=== PATIENT | female | born 1950 | race Caucasian/White ===

== ENCOUNTER → 2017-05-20 10:17 | Outpatient (CLI) | payer MEDICARE, BC | END | disposition home or self-care (01) | LOC: D.US 10:17 | DX: R31.9 Hematuria, unspecified (principal); N28.1 Cyst of kidney, acquired ==

== ENCOUNTER → 2017-05-27 11:05 | Outpatient (CLI) | payer MEDICARE, BC | END | disposition home or self-care (01) | LOC: D.CT 11:05 | DX: R31.9 Hematuria, unspecified (principal); N28.1 Cyst of kidney, acquired ==

== ENCOUNTER 2018-08-18 06:04 | Outpatient (CLI) | payer MEDICARE, BC ==
[~2018-08-18] VITALS: Ht 154.9 cm; Wt 84.1 kg
[2018-08-18 06:28] LABS: EOSINOPHILS 3.5 % (0-7); HEMOGLOBIN 14.9 g/dL (12-16); IMMATURE GRANULOCYTES 0.1 % (0-5); LYMPHOCYTES 29.8 % (15-50); MCH 32.3 pg (26.0-34.0); MCHC 34.7 g/dL (31.0-37.0); MCV 93.1 fL (80.0-100.0); MEAN PLATELET VOLUME 10.4 fL (7.4-10.4); MONOCYTES 6.8 % (2-11); NEUTROPHILS 58.8 % (40-80); RBC 4.62 10x6/uL (4.00-5.40); RDW 13.1 % (11.5-14.5); WBC 7.4 10x3/uL (4.8-10.8)
[2018-08-18 06:45] LABS: APTT 25.3 SECONDS (22.8-39.4); INR 1.06 (0.85-1.17); PROTIME 13.3 SECONDS (11.6-15.0)
[2018-08-18 06:47] LABS: ANION GAP 14.2 mmol/L (8-16); CALCIUM 9.1 mg/dL (8.5-10.1); CARBON DIOXIDE 28.2 mmol/L (21.0-32.0); CREATININE - SERUM 0.9 mg/dL (0.6-1.3); POTASSIUM - SERUM 3.4 mmol/L (3.5-5.1)
[2018-08-18] MEDS ORDERED: COUMADIN2.5 MG PO (06:58)
[2018-08-18] MEDS ORDERED: ACETAMINOPHEN325 MG PO (06:58)
[2018-08-18] MEDS ORDERED: VESICARE5 MG PO (06:59)
[2018-08-18] MEDS ORDERED: ZOCOR40 MG PO (06:59)
[2018-08-18] MEDS ORDERED: SYNTHROID50 MCG PO (06:59)
[2018-08-18] MEDS ORDERED: HYDROCHLOROTHIA25 MG PO (06:59)
[2018-08-18] MEDS ORDERED: POTASSIUM CHLO10 ME1 PO (07:00)
[2018-08-18 07:08] VITALS: BP 142/71; Ht 154.9 cm; Wt 84.1 kg
[2018-08-18 07:38] LABS: PLATELET COUNT 178 10x3/uL (130-400)
--- NOTE | 2018-08-18 10:55 | NUR ---
DC INSTRUCTIONS GIVEN TO PT/FAMILY. STATE UNDERSTANDING. DC'D IV CATH FULLY INTACT
--- NOTE | 2018-08-18 11:03 | NUR ---
PT LEFT UNIT VIA WC AT 1103
== END 2018-08-18 11:03 | disposition home or self-care (01) ==
LOC: D.SP 06:04 → D.CT 08:00 → D.SP 08:00
PROVIDERS: ATTEND Radiology Diagnostic Radiology
DX: N28.1 Cyst of kidney, acquired (principal); Z01.812 Encounter for preprocedural laboratory examination

== ENCOUNTER → 2019-05-24 14:31 | Outpatient (CLI) | payer MEDICARE, BC ==
[2018-08-18 07:08] VITALS: BMI 35.0
[~2019-05-24 14:31] MED LIST: ACETAMINOPHEN325 MG PO; BACLOFEN20 M1 PO; COUMADIN2.5 MG PO; HYDROCHLOROTHIA25 MG PO; POTASSIUM CHLO10 ME1 PO; SYNTHROID50 MCG PO; VESICARE5 MG PO; ZOCOR40 MG PO
--- NOTE | 2019-05-27 15:25 | ST ---
PATIENT:JULIAN KELLY MEDICAL RECORD: [id number] SEX: F LOCATION:[facility] ORDER #: ADMISSION DATE: 05/24/19 AGE OF PATIENT: 69 REFERRING PHYSICIAN: INTERPRETING PHYSICIAN: NUHA YANG MD DATE OF SERVICE: 05/24/2019 PROCEDURE: Stress test. INDICATION: Chest pain. She was exercised on standard Alden protocol for 7 minutes achieving 85% max target heart rate response with no EKG changes, no dysrhythmias, no anginal chest discomfort. OVERALL IMPRESSION: Negative for inducible ischemia at adequate cardiac workload. TRANSINT:[id number] Voice Confirmation ID: [id number] DOCUMENT ID: [id number] NUHA YANG MD at 1525 CC: BERENICE FRANCOIS [id number] DICTATION DATE: 05/25/19 1623 ART GILDER: 05/26/19 0734 [facility] CLI 05/24/[address] [id number]
== END | disposition home or self-care (01) ==
LOC: D.HCCARDIO 05-11 15:00
PROVIDERS: ATTEND Internal Medicine Interventional Cardiology
DX: R07.89 Other chest pain (principal)

== ENCOUNTER 2019-06-06 08:53 | Emergency (ER) | payer MEDICARE, BC ==
[~2019-06-06] VITALS: Ht 154.9 cm; Wt 81.2 kg
[~2019-06-06 08:53] MED LIST changes: -BACLOFEN20 M1 PO
[2019-06-06 08:58] VITALS: Ht 154.9 cm; Wt 81.2 kg
[2019-06-06] MEDS ORDERED: BACLOFEN20 M1 PO (12:46)
[2019-06-06 12:52] VITALS: BP 138/70
== END 2019-06-06 12:54 | disposition home or self-care (01) ==
LOC: D.ER 08:53
DX: M79.662 Pain in left lower leg (principal); I10 Essential (primary) hypertension; E07.9 Disorder of thyroid, unspecified